=== PATIENT | female | born 1960 | race Caucasian/White ===

== ENCOUNTER 2023-02-18 07:04 | Outpatient (RCR) | payer OTHER, SELFPAY ==
--- NOTE | 2022-11-03 16:28 | CR1_ITS ---
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
--- NOTE | 2022-11-30 15:47 | CR1_ITS ---
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
--- NOTE | 2022-12-30 12:31 | CR1_ITS ---
The 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
--- NOTE | 2023-01-27 15:32 | CR1_ITS ---
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
--- NOTE | 2023-01-29 10:41 | CR1_ITS ---
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
== END 2023-02-19 17:03 | disposition home or self-care (01) ==
LOC: CR 07:04
PROVIDERS: PCP Family Medicine; Visit Provider Family Medicine
DX: Z95.2 Presence of prosthetic heart valve (principal)
CPT/HCPCS: 93797; 93798

== ENCOUNTER 2023-03-16 07:22 | Outpatient (RCR) | payer OTHER, SELFPAY ==
--- NOTE | 2023-03-01 13:49 | CR1_ITS ---
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
== END 2023-03-16 09:20 | disposition home or self-care (01) ==
LOC: CR 07:22
PROVIDERS: PCP Family Medicine; Visit Provider Family Medicine
DX: Z95.2 Presence of prosthetic heart valve (principal)
CPT/HCPCS: 93798